=== PATIENT | female | born 1990 | race Caucasian/White ===

== ENCOUNTER 2017-06-10 10:40 | Inpatient (IN) | payer MEDICAID ==
[2017-06-10] VITALS (15 sets, daily range): BP systolic 122–144; BP diastolic 69–93; PULSE 76–115; RESP 16–18; TEMP 97.9–98.4
[~2017-06-10] VITALS: Ht 162.6 cm; Wt 64.0 kg
[~2017-06-10 10:40] MED LIST: PREN1CAP7 PO
[2017-06-10] MEDS ORDERED: LACTATED RINGER'S 1000 ML INJ 1,000 ML IV PRN (11:33)
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
[2017-06-10] MEDS ORDERED: LIDOCAINE HCL 1% 50 ML VIAL INFIL PRN (11:45)
[2017-06-10] MEDS ORDERED: OXYTOCIN 30 UNITS-500ML PREMIX 500 ML IV ONE (11:45)
[2017-06-10] MEDS ORDERED: CITRIC ACID-SODIUM CITRATE LIQ 30 ML UDC PO SCH (11:45)
[2017-06-10] MEDS ORDERED: LIDOCAINE HCL 1% 50 ML VIAL I-DERMAL PRN (11:45)
[2017-06-10] MEDS ORDERED: MINERAL OIL 10 ML VIAL TOPICAL PRN (11:45)
[2017-06-10] MEDS ORDERED: SODIUM CHLORID 0.9% 500 ML INJ 500 ML IV PRN (11:45)
[2017-06-10] MEDS ORDERED: SODIUM CHLOR 0.9% 1000 ML INJ 1,000 ML IV PRN (11:53)
[2017-06-10 12:00] LABS: AUTOMATED NEUTROPHIL # 10.6 TH/MM3 (1.8-7.7); BASOPHIL % 0.2 % (0.0-2.0); EOSINOPHIL # 0.1 TH/MM3 (0-0.4); EOSINOPHIL % 0.6 % (0.0-4.0); HEMATOCRIT 38.6 % (35.0-46.0); HEMO FLAGS DIFF FINAL; LYMPH % 11.1 % (9.0-44.0); LYMPHOCYTE # 1.4 TH/MM3 (1.0-4.8); MEAN CELL VOLUME 91.5 FL (80.0-100.0); MEAN CORPUSCULAR HEMOGLOBIN 30.8 PG (27.0-34.0); MEAN CORPUSCULAR HGB CONC 33.6 % (32.0-36.0); MONO % 4.6 % (0.0-8.0); NEUT % 83.5 % (16.0-70.0); PLATELET COUNT 176 TH/MM3 (150-450); RED BLOOD COUNT 4.21 MIL/MM3 (4.00-5.30); RED CELL DISTRIBUTION WIDTH 13.6 % (11.6-17.2); WHITE BLOOD COUNT 12.6 TH/MM3 (4.0-11.0)
[2017-06-10] MEDS: LACTATED RINGER'S 1000 ML INJ 1,000 ML IV SCH ×2 (12:09→19:33)
[2017-06-10 12:15] LABS: BACTERIA, URINE RARE /hpf; BLOOD, URINE NEG (NEG); COMMENT (UR) CATH-CULTURE IND; CULTURE IF INDICATED CATH CULTURE IND; GLUCOSE,URINE NEG (NEG); KETONE, URINE NEG (NEG); MUCUS URINE FEW /lpf (OCC); NITRITE,URINE NEG (NEG); SQUAMOUS EPITHELIAL CELL URINE 11 /hpf (0-5); URINE COLOR YELLOW (YELLW/STRAW)
[2017-06-10] MEDS ORDERED: MEASLES, MUMPS, RUBELLA VACCINE 0.5 ML VIAL SQ ONE (16:00)
[2017-06-10] MEDS ORDERED: DIPHTH/TETANUS/ACEL PERTUSSIS (BOOSTER) 0.5 ML VIAL/PFS IM ONE (16:00)
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
--- NOTE | 2017-06-10 17:20 | HHI.PR ---
Subjective Remarks OB Hg S: Patient is breathing through her contractions O: VSS AF FHT: heart rate in the 120s with moderate long-term variability, good accelerations, no decelerations noted [place]: Approximately every 2-3 minutes SVE: 7-8/complete/-1 at last examination Assessment/plan: 1. IUP at 39.6 2. Labor: Continue expectant management 3. GBS negative 4. FHR is reassuring with a category 1 heart rate tracing Objective Vital Signs Date Time Temp Pulse Resp B/P (MAP) Pulse Ox O2 Delivery O2 Flow Rate FiO2 06/10/17 17:00 18 06/10/17 16:58 77 123/74 (90) 06/10/17 15:22 92 122/78 (93) 06/10/17 15:21 97.9 18 06/10/17 11:50 76 123/81 (95) Result Diagram: 06/10/17 1135 Ashwini Natarajan MD Jun 10, 2017 17:20
--- NOTE | 2017-06-10 21:39 | PD.OB.DELI ---
Weeks gestation: 39 Pt started active labor?: Yes Medical induction of labor?: No Artificial rupture of membrane: No Anesthesia: None Episiotomy: None Vaginal Delivery: Normal Presentation: Occiput anterior Nuchal Cord: None Delayed cord clamping (45 sec): Yes Infant: Female Delivery date: Jun 10, 2017 Delivery time: 20:59 One Minute : 8 Five Minute : 8 Weight: 3220 Placenta: Spontaneous delivery, Intact, 3 vessel cord Laceration: Vaginal laceration (left superior labial laceration and inferior vaginal laceration ), 1 deg Repair: Chromic interrupted (3.0 chromic) Estimated blood loss: 250 Silvia Luna MD, R1 Jun 10, 2017 21:39
[2017-06-10] MEDS ORDERED: oxyCODONE/ACETAMINOPHEN 5 MG/325 MG TAB PO PRN ×2 (21:45)
[2017-06-10] MEDS ORDERED: SODIUM CHLORIDE 0.9% FLUSH 10 ML FLUSH IV FLUSH PRN (21:45)
[2017-06-10] MEDS ORDERED: DOCUSATE SODIUM 50 MG/SENNA 8.6 MG TAB PO PRN (21:45)
[2017-06-10] MEDS ORDERED: OXYTOCIN 30 UNITS-500ML PREMIX 500 ML IV SCH (21:45)
[2017-06-10] MEDS ORDERED: ZOLPIDEM TARTRATE 5 MG TAB PO PRN (21:45)
[2017-06-10] MEDS ORDERED: ONDANSETRON ODT 4 MG TAB PO PRN (21:45)
[2017-06-10] MEDS ORDERED: ALUMINUM/MAGNESIUM/SIMETH 30 ML CUP PO PRN (21:45)
[2017-06-10] MEDS ORDERED: ACETAMINOPHEN 325 MG TAB PO PRN (21:45)
[2017-06-10] MEDS ORDERED: BENZOCAINE 20% TOPICAL SPRAY 60 ML CAN TOPICAL PRN (21:45)
[2017-06-10] MEDS ORDERED: WITCH HAZEL 50%/GLYCERIN 12.5% 40 PAD JAR TOPICAL PRN (21:45)
--- NOTE | 2017-06-10 21:57 | HHI.PR ---
Subjective Remarks [facility] [place] The patient progressed to complete/complete/+1 with spontaneous maternal expulsive efforts. The head delivered atraumatically. The shoulders initially appeared to be transverse with the anterior shoulder delivered atraumatically with a slight rotational maneuver followed by atraumatic spontaneous delivery of the remainder of the . The was placed on maternal abdomen was vigorous with stimulation. The cord was doubly clamped and cut after 45 seconds delay. The continued to be vigorous on the maternal abdomen but was subsequently taken to the warmer for assistance with transition. Apgars were 8/8. Cord blood was obtained for the nursery and the placenta delivered spontaneously. Approximately 3 cc of 1% lidocaine was instilled to repair a first-degree left labial and first-degree vaginal laceration, both of which were repaired with 3-0 chromic with excellent hemostasis and cosmesis noted. Please see resident note for EBL. Mother and are both doing well. Objective Vital Signs Date Time Temp Pulse Resp B/P (MAP) Pulse Ox O2 Delivery O2 Flow Rate FiO2 06/10/17 19:06 98.0 18 06/10/17 19:05 84 137/93 (108) 06/10/17 17:51 76 122/78 (93) 06/10/17 17:00 18 06/10/17 16:58 77 123/74 (90) 06/10/17 15:22 92 122/78 (93) 06/10/17 15:21 97.9 18 06/10/17 11:50 76 123/81 (95) Result Diagram: 06/10/17 1135 Ashwini Natarajan MD Jun 10, 2017 21:57
[2017-06-11 01:05] VITALS: BP 129/74; PULSE 83; RESP 18; TEMP 97.7
[2017-06-11] MEDS: IBUPROFEN 800 MG TAB PO PRN ×2 (01:10→20:27)
--- NOTE | 2017-06-11 07:56 | HHI.OB ---
Subjective Post Day: 0 Remarks Patient seen and examined at bedside. Patient stated pain is well-controlled. Minimal lochia. Passing flatus. Denies N/V. No other complaints. (Silvia Luna MD, R1) Post Day: 1 Remarks Patient is PPD #1, delivered on 06/10/17. The patient was personally seen and evaluated by me and I performed all brown portions of the decision making. She is doing well and there is no evidence of labial hematoma. She will be d/c home tomorrow. (Ashwini Natarajan MD) Objective Vitals/I&O Vital Signs Date Time Temp Pulse Resp B/P (MAP) Pulse Ox O2 Delivery O2 Flow Rate FiO2 06/11/17 01:05 83 18 129/74 (92) 06/11/17 01:05 97.7 06/10/17 22:24 16 06/10/17 22:23 86 129/69 (89) 06/10/17 22:05 16 06/10/17 22:00 98 144/80 (101) 06/10/17 21:48 98.4 06/10/17 21:48 102 16 134/79 (97) 06/10/17 21:40 18 06/10/17 21:35 18 06/10/17 21:32 115 137/87 (104) 06/10/17 19:06 98.0 18 06/10/17 19:05 84 137/93 (108) 06/10/17 17:51 76 122/78 (93) 06/10/17 17:00 18 06/10/17 16:58 77 123/74 (90) 06/10/17 15:22 92 122/78 (93) 06/10/17 15:21 97.9 18 06/10/17 11:50 76 123/81 (95) Objective Remarks GENERAL: Well-nourished, well-developed patient. NAD CARDIOVASCULAR: Regular rate and rhythm without murmurs, gallops, or rubs. Normal S1 and S2. RESPIRATORY: Breath sounds equal bilaterally. No accessory muscle use. ABDOMEN/GI: Abdomen soft, non-tender. Fundus: Firm, non-tender at umbilicus. GENITOURINARY: Light to moderate bleeding. No hematoma found on inspection of genital area. EXTREMITIES: No cyanosis or edema, non-tender, without signs of DVT. Medications and IVs Current Medications Medications (Trade) Dose Ordered Sig/Shruti Route Start Time Stop Time Status Last Admin (NS Flush) 2 ml BID IV FLUSH 06/11/17 09:00 (NS Flush) 2 ml UNSCH PRN IV FLUSH 06/10/17 21:45 (Tylenol) 650 mg Q4H PRN PO 06/10/17 21:45 (Motrin) 800 mg Q8H PRN PO 06/10/17 21:45 06/11/17 01:10 (Percocet 5-325 Mg) 1 tab Q4H PRN PO 06/10/17 21:45 (Percocet 5-325 Mg) 2 tab Q4H PRN PO 06/10/17 21:45 (Americaine 20% Top Spr) 1 spray Q4H PRN TOPICAL 06/10/17 21:45 06/11/17 01:11 (Tucks Pads) 1 applic QID PRN TOPICAL 06/10/17 21:45 06/11/17 01:11 (Nat-Colace) 2 tab Q12H PRN PO 06/10/17 21:45 (Ambien) 5 mg HS PRN PO 06/10/17 21:45 (Mag-Al Plus Susp Liq) 15 ml Q8H PRN PO 06/10/17 21:45 (Zofran Odt) 4 mg Q6H PRN PO 06/10/17 21:45 (Silvia Luna MD, R1) Assessment/Plan Problem List: (1) with 39 completed weeks gestation ICD Codes: Z3A.39 - 39 weeks gestation of Status: Resolved (2) (spontaneous vaginal delivery) ICD Codes: O80 - Encounter for full-term uncomplicated delivery Assessment and Plan Patient is a 26-year-old G 3 P 2 delivered at 39/6 weeks.. Patient is day 0. Patient was counseled to do 6 weeks of pelvic rest. Patient was counseled to follow up in 6 weeks. --AF VSS --Continue routine care --Motrin and Percocet when necessary for pain --Encourage OOB --Pelvic rest for 6 weeks will need follow-up appointment at that time. --Contraception: Follow-up as outpatient. --Anticipate discharge tomorrow sdw Dr. Natarajan and Dr. Banda Discharge Planning Patient stable. Plan for discharge tomorrow. (Silvia Luna MD, R1) Silvia Luna MD, R1 Jun 11, 2017 07:56 Ashwini Natarajan MD Jun 11, 2017 08:35
[2017-06-11] MEDS ORDERED: SODIUM CHLORIDE 0.9% FLUSH 10 ML FLUSH IV FLUSH SCH (09:00)
[2017-06-11 18:26] VITALS: BP 118/71; PULSE 51; RESP 16; TEMP 98
--- NOTE | 2017-06-11 20:07 | HHI.DCPOC ---
Discharge Care Plan Diagnosis: (1) (spontaneous vaginal delivery) (2) with 39 completed weeks gestation Report Symptoms to Your Doctor -Temperature above 100.5 degrees -Redness, of incision or excessive or foul smelling drainage -Unusual pain or calf pain -Increased vaginal bleeding -Painful or difficulty urinating -Feelings of extreme sadness or anxiety after 2 weeks Goals to Promote Your Health * To prevent worsening of your condition and complications * To maintain your health at the optimal level Directions to Meet Your Goals Take your medications as prescribed Follow your dietary instruction Follow activity as directed Ensure plenty of rest for recovery Drink fluids for hydration Keep your appointments as scheduled Take your immunizations and boosters as scheduled If your symptoms worsen call your PCP, if no PCP go to Urgent Care Center or Emergency Room Smoking is Dangerous to Your Health. Avoid second hand smoke Call the 24-hour crisis hotline for domestic abuse at Vicky Alcantara MD R2 Jun 11, 2017 20:07
[2017-06-11 20:32] VITALS: BP 126/77; PULSE 55; RESP 18; TEMP 98
--- NOTE | 2017-06-12 07:26 | HHI.OB ---
Subjective Post Day: 2 Remarks Ms Johnson had no acute events overnight. Her baby was taken to the NICU, however. Pt pain is controlled with ibuprofen, ambulating, taking PO, voiding and flatus but no BM yet. Lochia is normal and decreasing. Pt is exclusively . Denies CP, SOB, N/V/D, and DVT pain. Plans to discharge today. Objective Vitals/I&O Vital Signs Date Time Temp Pulse Resp B/P (MAP) Pulse Ox O2 Delivery O2 Flow Rate FiO2 06/11/17 20:32 98.0 55 18 126/77 (93) 06/11/17 18:26 98.0 51 16 118/71 Objective Remarks GENERAL: Well-nourished, well-developed patient lying in bed in NAD. CARDIOVASCULAR: Regular rate and rhythm without murmur, gallop, or rub. Normal S1 and S2. RESPIRATORY: Breath sounds equal bilaterally in all lung shafer. No accessory muscle use. ABDOMEN/GI: Abdomen soft, non-tender. Appropriately distended. Normal BS. Fundus: Firm, non-tender below umbilicus. GENITOURINARY: Light to moderate bleeding. EXTREMITIES: No cyanosis or edema, non-tender, without signs of DVT. Medications and IVs Current Medications Medications (Trade) Dose Ordered Sig/Shruti Route Start Time Stop Time Status Last Admin (NS Flush) 2 ml BID IV FLUSH 06/11/17 09:00 (NS Flush) 2 ml UNSCH PRN IV FLUSH 06/10/17 21:45 (Tylenol) 650 mg Q4H PRN PO 06/10/17 21:45 (Motrin) 800 mg Q8H PRN PO 06/10/17 21:45 06/11/17 20:27 (Percocet 5-325 Mg) 1 tab Q4H PRN PO 06/10/17 21:45 (Percocet 5-325 Mg) 2 tab Q4H PRN PO 06/10/17 21:45 (Americaine 20% Top Spr) 1 spray Q4H PRN TOPICAL 06/10/17 21:45 06/11/17 01:11 (Tucks Pads) 1 applic QID PRN TOPICAL 06/10/17 21:45 06/11/17 01:11 (Nat-Colace) 2 tab Q12H PRN PO 06/10/17 21:45 06/11/17 20:27 (Ambien) 5 mg HS PRN PO 06/10/17 21:45 (Mag-Al Plus Susp Liq) 15 ml Q8H PRN PO 06/10/17 21:45 (Zofran Odt) 4 mg Q6H PRN PO 06/10/17 21:45 Assessment/Plan Problem List: (1) with 39 completed weeks gestation ICD Codes: Z3A.39 - 39 weeks gestation of Status: Resolved (2) (spontaneous vaginal delivery) ICD Codes: O80 - Encounter for full-term uncomplicated delivery Assessment and Plan 26YO PPD#2 after delivery via at 39/6 weeks. Pain controlled with ibuprofen, ambulating, taking PO, voiding and flatus but no BM yet. Lochia normal and decreasing. Exclusively . AFVSS. Physical exam benign. Denies CP, SOB, N/V/D, and DVT pain. 1. Routine care --Motrin when necessary for pain --Encouraged OOB --Pelvic rest for 6 weeks; will need follow-up appointment at that time --Contraception: Follow-up as outpatient. 2. Discharge today anticipated Pt discussed with Vidal Flores and [place] Discharge Planning Patient stable. Plan for discharge today Iban Kc MD R1 Jun 12, 2017 07:26
[2017-06-12 07:46] VITALS: BP 126/75; PULSE 73; RESP 16; TEMP 98.9
[2017-06-12] MEDS ORDERED: IBUP1TAB7 PO (08:30)
== END 2017-06-12 12:18 | disposition home or self-care (01) | DRG 775 ==
LOC: HOBED 10:40 → H2EB 11:34 → H1EA 23:31
PROVIDERS: ADMIT Obstetrics & Gynecology; ATTEND Obstetrics & Gynecology
PROC: 10E0XZZ Delivery of Products of Conception, External Approach (ICD-10-PCS; principal; 2017-06-10)
PROC: 0HQ9XZZ Repair Perineum Skin, External Approach (ICD-10-PCS; 2017-06-10)
DX: O99.334 Smoking (tobacco) complicating childbirth (principal); F17.200 Nicotine dependence, unspecified, uncomplicated; O70.0 First degree perineal laceration during delivery; Z3A.39 39 weeks gestation of pregnancy; Z37.0 Single live birth
CPT/HCPCS: 59025; 80307; 81001; 85025; 85461; 86850; 86900; 86901; 87086; 90384; J2790; J3010; J7120

== ENCOUNTER 2017-06-16 06:44 | Observation (INO) | payer MEDICAID ==
[~2017-06-16 06:44] MED LIST changes: +IBUP1TAB7 PO
[2017-06-16] MEDS ORDERED: KETOROLAC TROMETHAMINE 60 MG/2 ML (IM) VIAL IM ONE (07:45)
[2017-06-16] MEDS ORDERED: KETOROLAC TROMETHAMINE 30 MG/ML (IVP) VIAL ONE (08:05)
[2017-06-16 08:23] LABS: BILIRUBIN, URINE NEG (NEG); BLOOD, URINE SMALL (NEG); GLUCOSE,URINE NEG (NEG); KETONE, URINE 10 mg/dL (NEG); MUCUS URINE FEW /lpf (OCC); NITRITE,URINE NEG (NEG); PH, URINE 6.5 (5.0-8.5); SQUAMOUS EPITHELIAL CELL URINE 1 /hpf (0-5); URINE COLOR YELLOW (YELLW/STRAW); URINE LEUKOCYTE ESTERASE TRACE (NEG)
--- NOTE | 2017-06-16 08:55 | HHI.HP ---
HPI Chief Complaint Complains of severe vaginal pain after having delivered 5 days ago vaginally with lacerations repaired, she complains of a fever 102 yesterday afternoon, and she was and appear by the emergency room for a blood pressure today There is 177/90 Date Seen: Jun 16, 2017 Time Seen: 08:45 Travel History International Travel<30 Days: No Contact w/Intl Traveler<30Days: No Known Affected Area: No History of Present Illness HPI Patient is a 26-year-old white female 5 days after vaginal delivery done by her service. She at that time had a left labial laceration that was repaired as well as first-degree perineal laceration was repaired. He complained of stinging bad pain when she urinated of in the vaginal area since delivery but has gotten much worse in the last day. Patient's been in the hospital the entire time she was discharged from the service for her baby is in the NICU says she's been in a boarding situation here in the hospital and has stayed here with the baby. The patient states that yesterday she had a temperature to 102 she measured Para: 2 : 2 History Obstetric History Obstetric History 2 vaginal deliveries last delivery was mentioned above had a vaginal laceration on left side labial area and a first-degree perineal laceration were repaired. Social History Alcohol Use: No Tobacco Use: No Substance Abuse: No Allergies-Medications (Allergen,Severity, Reaction): Coded Allergies: lamotrigine (Verified Allergy, Mild, Hives, 06/10/17) Home Meds Active Scripts Ibuprofen (Ibuprofen) 800 Mg Tab, 800 MG PO Q8H Y for CRAMPING for 5 Days, #15 TAB Prov:Iban Kc MD 06/12/17 W/O Vit A W/ Fe Fumar (Citranatal [place]) 27-1-260 Mg Cap, 1 CAP PO DAILY for Nutritional Supplement, #30 CAP 11 Refills Prov:Ashwini Garcia 11/23/16 Review of Systems General / Constitutional: No: Fever, Weight Gain, Chills, Other Eyes: No: Diploplia, Blurred Vision, Visual changes, Pain, Photophobia HENT: No: Headaches, Vertigo, Lightheadedness Cardiovascular: No: Irregular Rhythm, Chest Pain or Discomfort, Palpitations, Tachycardia, Syncope, Varicosities, Edema, Cyanosis Respiratory: No: Cough, Short of Breath, Other Gastrointestinal: No: Nausea, Vomiting, Diarrhea Genitourinary: Dysuria, No: Decreased Urinary Output, Oliguria Musculoskeletal: No: Limited ROM, Weakness, Cramping, Edema, Pain Skin: No Rash, No Itching, No Dryness, No Lumps, No Change in Pigmentation, No Change in Nails, No Alopecia, No Lesions Neurologic: No: Weakness, Dizziness, Syncope, Focal Abnormalities, Coordination Problem, Headache, Slurred Speech, Seizures Psychiatric: No: Depression, Suicidal Ideations, Homicidal Ideation Endocrine: No: Heat Intolerance, Cold Intolerance, Polydipsia, Polyuria, Other Physical Exam Narrative GENERAL: Well-nourished, well-developed patient. SKIN: Warm and dry. HEAD: Normocephalic and atraumatic. EYES: No scleral icterus. No injection or drainage. ENT: No nasal drainage noted. Mucous membranes pink. Airway patent. NECK: Supple, trachea midline. No JVD. CARDIOVASCULAR: Regular rate and rhythm without murmurs, gallops, or rubs. RESPIRATORY: Breath sounds equal bilaterally. No accessory muscle use. BREASTS: Bilateral exam showed no masses , no retractions, no nipple discharge. ABDOMEN/GI: Abdomen soft, minimal-tender, bowel sounds present, no rebound, no guarding Fundal Height: [at umbilicus firm-] GENITOURINARY: External Genitalia: Labia show fairly large laceration on the left side that was repaired using suture there is somewhat and has a purulent covering to it and she would more or less expected 5 days out from that repair this area is very tender to touch. There is some edema and ecchymosis , the posterior fourchette appears normal and is minimally tender, this a couple of small superficial lacerations on the right vaginal sidewall. Cervix: [Normal state-] EXTREMITIES: No cyanosis or edema. BACK: Nontender without obvious deformity. No CVA tenderness. NEUROLOGICAL: Awake and alert. Motor and sensory grossly within normal limits. Five out of 5 muscle strength in all muscle groups. Normal speech. Caprini VTE Risk Assessment Caprini VTE Risk Assessment: No/Low Risk (score <= 1) Caprini Risk Assessment Model Point Value = 1 Point Value = 2 Point Value = 3 Point Value = 5 Age 41-60 Minor surgery BMI > 25 kg/m2 Swollen legs Varicose veins or History of unexplained or recurrent spontaneous Oral contraceptives or hormone replacement Sepsis (< 1 month) Serious lung disease, including pneumonia (< 1 month) Abnormal pulmonary function Acute myocardial infarction Congestive heart failure (< 1 month) History of inflammatory bowel disease Medical patient at bed rest Age 61-74 Arthroscopic surgery Major open surgery (> 45 min) Laparoscopic surgery (> 45 min) Malignancy Confined to bed (> 72 hours) Immobilizing plaster cast Central venous access Age >= 75 History of VTE Family history of VTE Factor V Leiden Prothrombin [id number] Lupus anticoagulant Anticardiolipin antibodies Elevated serum homocysteine Heparin-induced thrombocytopenia Other congenital or acquired thrombophilia Stroke (< 1 month) Elective arthroplasty Hip, pelvis, or leg fracture Acute spinal cord injury (< 1 month) Prophylaxis Regimen Total Risk Factor Score Risk Level Prophylaxis Regimen 0-1 Low Early ambulation 2 Moderate Order ONE of the following: *Sequential Compression Device (SCD) *Heparin 5000 units SQ BID 3-4 Higher Order ONE of the following medications: *Heparin 5000 units SQ TID *Enoxaparin/Lovenox 40 mg SQ daily (WT < 150 kg, CrCl > 30 mL/min) *Enoxaparin/Lovenox 30 mg SQ daily (WT < 150 kg, CrCl > 10-29 mL/min) *Enoxaparin/Lovenox 30 mg SQ BID (WT < 150 kg, CrCl > 30 mL/min) AND/OR *Sequential Compression Device (SCD) 5 or more Highest Order ONE of the following medications: *Heparin 5000 units SQ TID (Preferred with Epidurals) *Enoxaparin/Lovenox 40 mg SQ daily (WT < 150 kg, CrCl > 30 mL/min) *Enoxaparin/Lovenox 30 mg SQ daily (WT < 150 kg, CrCl > 10-29 mL/min) *Enoxaparin/Lovenox 30 mg SQ BID (WT < 150 kg, CrCl > 30 mL/min) AND *Sequential Compression Device (SCD) Data Data Orders Orders Cbc No Diff, Includes Plts (06/16/17 06:54) Comprehensive Metabolic Panel (06/16/17 06:54) Uric Acid (06/16/17 06:54) Urinalysis - C+S If Indicated (06/16/17 06:54) Ketorolac Inj (Toradol Inj) (06/16/17 07:45) Ketorolac Inj (Toradol Inj) (06/16/17 08:05) Labs Laboratory Tests Test 06/16/17 07:35 Urine Color YELLOW Urine Turbidity CLEAR Urine pH 6.5 Urine Specific Surrency 1.025 Urine Protein TRACE Urine Glucose (UA) NEG Urine Ketones 10 Urine Occult Blood SMALL Urine Nitrite NEG Urine Bilirubin NEG Urine Urobilinogen 2.0 Urine Leukocyte Esterase TRACE Urine RBC 1 Urine WBC 3 Urine Squamous Epithelial Cells 1 Urine Mucus FEW Microscopic Urinalysis Comment CULT NOT INDICATED Assessment/Plan Assessment and Plan 26-year-old white female para 2 whose 5 days after vaginal delivery and sustained a left labial laceration and small perineal laceration these were repaired. However since the delivery the pain is increased in this area to the point she can't urinate without severe stinging pain in the areas extremely tender to touch as well. Patient subjective fever 102 we have not documented but I'm concerned that she may be having a infection related to the lacerations above or endometritis Impression is subjective fever as well as severe labial laceration and pain and swelling of and dysuria related to that Plan to admit for 23 hour observation with an IV antibiotic, local lidocaine gel to the labia, observe the patient for any febrile episodes, and the check her blood pressures to make sure they stay within normal range Liang Manley II, MD Jun 16, 2017 08:55
[2017-06-16] MEDS ORDERED: ACETAMINOPHEN 325 MG TAB PO PRN (09:00)
[2017-06-16] MEDS ORDERED: LIDOCAINE HCL 5% OINT 37 GM TUBE TOPICAL PRN (09:00)
[2017-06-16] MEDS ORDERED: SODIUM CHLORIDE 0.9% FLUSH 10 ML FLUSH IV FLUSH PRN (09:00)
[2017-06-16] MEDS ORDERED: ONDANSETRON ODT 4 MG TAB PO PRN (09:00)
[2017-06-16] MEDS: SODIUM CHLORIDE 0.9% FLUSH 10 ML FLUSH IV FLUSH SCH ×2 (09:00→21:00)
[2017-06-16 10:57] LABS: AUTOMATED NEUTROPHIL # 6.4 TH/MM3 (1.8-7.7); BASOPHIL % 0.2 % (0.0-2.0); EOSINOPHIL % 0.3 % (0.0-4.0); HEMATOCRIT 37.7 % (35.0-46.0); HEMOGLOBIN 12.9 GM/DL (11.6-15.3); LYMPH % 11.2 % (9.0-44.0); LYMPHOCYTE # 0.9 TH/MM3 (1.0-4.8); MEAN CELL VOLUME 91.4 FL (80.0-100.0); MEAN CORPUSCULAR HEMOGLOBIN 31.2 PG (27.0-34.0); MEAN CORPUSCULAR HGB CONC 34.1 % (32.0-36.0); MONOCYTE # 0.6 TH/MM3 (0-0.9); NEUT % 80.3 % (16.0-70.0); PLATELET COUNT 184 TH/MM3 (150-450); RED BLOOD COUNT 4.13 MIL/MM3 (4.00-5.30); RED CELL DISTRIBUTION WIDTH 13.7 % (11.6-17.2); WHITE BLOOD COUNT 7.9 TH/MM3 (4.0-11.0)
[2017-06-16] MEDS: cefTRIAXone INJ 1,000 MG in SODIUM CHLORIDE 0.9% INJ 100 ML IV SCH (11:07)
[2017-06-16 11:24] LABS: BICARBONATE 25.5 MEQ/L (21.0-32.0); BLOOD UREA NITROGEN 13 MG/DL (7-18); CALCIUM 8.2 MG/DL (8.5-10.1); CHLORIDE 106 MEQ/L (98-107); CREATININE 0.56 MG/DL (0.50-1.00); GLOMERULAR FILTRATION RATE 130 ML/MIN (>89); GLUCOSE,RANDOM 78 MG/DL (74-106); SODIUM (NA) 139 MEQ/L (136-145)
[2017-06-16 12:15] LABS: ALBUMIN 2.8 GM/DL (3.4-5.0); ALT (GPT) 30 U/L (10-53); AST (GOT) 25 U/L (15-37)
[2017-06-16 12:16] LABS: ALKALINE PHOSPHATASE 137 U/L (45-117); TOTAL BILIRUBIN ADULT 0.3 MG/DL (0.2-1.0); TOTAL PROTEIN 6.5 GM/DL (6.4-8.2)
[2017-06-16 12:54] VITALS: BP 124/72; PULSE 76
[2017-06-16 13:00] VITALS: RESP 18; TEMP 99.1; O2SAT 99
[2017-06-16] MEDS ORDERED: KETOROLAC TROMETHAMINE 60 MG/2 ML (IM) VIAL IM PRN (14:00)
[2017-06-16 14:48] VITALS: TEMP 99.1
[2017-06-16] MEDS: oxyCODONE/ACETAMINOPHEN 5 MG/325 MG TAB PO PRN ×2 (15:27→21:47)
[2017-06-16 15:30] VITALS: BP 148/80; PULSE 77; RESP 18; TEMP 100.1; O2SAT 96
[2017-06-16] MEDS: WITCH HAZEL 50%/GLYCERIN 12.5% 40 PAD JAR TOPICAL PRN (19:00)
[2017-06-16 20:00] VITALS: BP 138/79; PULSE 81; RESP 18; TEMP 99.8
[2017-06-16] MEDS ORDERED: ZOLPIDEM TARTRATE 5 MG TAB PO PRN (21:00)
[2017-06-17 08:00] VITALS: BP 135/84; PULSE 83; RESP 18; TEMP 99.8
[2017-06-17 09:56] VITALS: TEMP 98.9
[2017-06-17] MEDS: SODIUM CHLORIDE 0.9% FLUSH 10 ML FLUSH IV FLUSH SCH (10:32)
[2017-06-17] MEDS: cefTRIAXone INJ 1,000 MG in SODIUM CHLORIDE 0.9% INJ 100 ML IV SCH (10:34)
--- NOTE | 2017-06-17 10:57 | HHI.PR ---
[facility] [employer] [employer] Note Note Subjective: Patient is doing better this morning. vaginal pain is not as bad as the previous day but is still worrisome. Tmax 99.8F in the past 24 hours. Objective: GENERAL: Well-nourished, well-developed patient. SKIN: Warm and dry. HEAD: Normocephalic and atraumatic. EYES: No scleral icterus. No injection or drainage. ENT: No nasal drainage noted. Mucous membranes pink. Airway patent. NECK: Supple, trachea midline. No JVD. CARDIOVASCULAR: Regular rate and rhythm without murmurs, gallops, or rubs. RESPIRATORY: Breath sounds equal bilaterally. No accessory muscle use. ABDOMEN/GI: Abdomen soft, non-distended GENITOURINARY: External Genitalia: left labium with large laceration that was repaired, with mild separation, some edema, no purulence, appears better than previous exam description EXTREMITIES: No cyanosis or edema. BACK: Nontender without obvious deformity. No CVA tenderness. NEUROLOGICAL: Awake and alert. Motor and sensory grossly within normal limits. Normal speech. Assessment: 26-year-old who is 6 days vaginal delivery and sustained a left labial laceration and small perineal laceration that were repaired, presented with acute laceration infection which is much improved on IV rocephin. PLAN: -Was admitted on 23 hour observation -Has received 2 doses of Rocephin 1g Q24h -Inflammation improved on Toradol 30mg IM -Plan to discharge home on Bactrim DS 1 tab PO BID x 10 days -Continue Toradol PO to complete 5 days -Additional 5 days of Ibuprofen 600mg Q6h as needed, Percocet as needed -Witch fawn pads and lidocaine patches as needed for inflammation and pain control -Continue stool softener -Follow up with OB provider within [address] Cynthia Alcantara,Vicky Isaac MD R2 Jun 17, 2017 10:57
[2017-06-17] MEDS ORDERED: DULC100C PO (11:11)
[2017-06-17] MEDS ORDERED: LIDO5%T TOPICAL (11:11)
[2017-06-17] MEDS ORDERED: IBUP1TAB7 PO (11:11)
[2017-06-17] MEDS ORDERED: OXYC1TAB63 PO (11:11)
[2017-06-17] MEDS ORDERED: KETO10 PO (11:11)
[2017-06-17] MEDS ORDERED: TUCKSPAD TOPICAL (11:11)
--- NOTE | 2017-06-17 11:12 | HHI.DCPOC ---
Discharge Care Plan Diagnosis: (1) Labial infection Goals to Promote Your Health * To prevent worsening of your condition and complications * To maintain your health at the optimal level Directions to Meet Your Goals Take your medications as prescribed Follow your dietary instruction Follow activity as directed Keep your appointments as scheduled Take your immunizations and boosters as scheduled If your symptoms worsen call your PCP, if no PCP go to Urgent Care Center or Emergency Room Smoking is Dangerous to Your Health. Avoid second hand smoke Call the 24-hour hour crisis hotline for domestic abuse at Vicky Alcantara MD R2 Jun 17, 2017 11:12
[2017-06-17] MEDS ORDERED: BACT800T5 PO (11:15)
[2017-06-17] MEDS: WITCH HAZEL 50%/GLYCERIN 12.5% 40 PAD JAR TOPICAL PRN (11:41)
[2017-06-17] MEDS: oxyCODONE/ACETAMINOPHEN 5 MG/325 MG TAB PO PRN (11:41)
[2017-06-17] MEDS ORDERED: CEPHALEXIN MONOHYDRATE 500 MG CAP PO SCH (12:00)
[2017-06-17] MEDS ORDERED: IBUPROFEN 800 MG TAB PO SCH (12:00)
[2017-06-17] MEDS ORDERED: DOCUSATE SODIUM 100 MG CAP PO SCH (21:00)
[2017-06-21] MEDS ORDERED: IBUP1TAB7 PO (16:35)
[2017-06-21] MEDS ORDERED: DIPH25CA PO (16:35)
[2017-06-21] MEDS ORDERED: TUCKS TOPICAL (16:35)
[2017-06-21] MEDS ORDERED: EPIF1AER2 TOPICAL (16:35)
== END 2017-06-17 15:06 | disposition home or self-care (01) ==
LOC: HOBED 06:44 → H2EA 09:12 → H1EA 14:00
PROVIDERS: ADMIT Obstetrics & Gynecology Maternal & Fetal Medicine; ATTEND Obstetrics & Gynecology Maternal & Fetal Medicine
DX: O86.19 Other infection of genital tract following delivery (principal); N76.2 Acute vulvitis
CPT/HCPCS: 80053; 81001; 84550; 85025; 96365; 96366; 96372; 96375; 99285; G0378; J0696; J1885